=== PATIENT | female | born 1945 | race Caucasian/White ===

== ENCOUNTER 2019-04-15 13:51 | Inpatient (IN) ==
--- NOTE | 2019-04-15 14:01 | PROVIDER DOCUMENTATION ---
HPI-Abdominal Pain/GI Problem - General Chief Complaint: Abdominal Pain Stated Complaint: STOMACH PAIN Time Seen by Provider: 04/15/19 14:00 Allergies/Adverse Reactions: Patient Allergies Allergy/AdvReac Type Severity Reaction Status Date / Time prochlorperazine edisylate * Allergy Intermediate Unknown Verified 05/20/18 08:38 [From Compazine] prochlorperazine maleate * Allergy Intermediate Unknown Verified 05/20/18 08:38 [From Compazine] adhesive tape AdvReac Mild "irritates" Verified 05/20/18 08:38 skin Home Medications: Home Medication List Medication Instructions Recorded Confirmed Last Taken Type Acetaminophen/Diphenhydramine 1 each PO QHS 06/23/12 05/20/18 05/19/18 21:00 History [Tylenol Pm] Polyethylene Glycol 3350 [Miralax] 17 gm PO DAILY 06/23/12 05/20/18 05/19/18 10:00 History Amlodipine Besylate 5 mg PO DAILY 05/19/18 05/20/18 05/19/18 10:00 History Aspirin [Aspir-Low] 81 mg PO DAILY 05/19/18 05/19/18 05/08/18 History Biotin 1 dose PO DAILY 05/19/18 05/20/18 05/19/18 10:00 History Bisoprolol [Zebeta] 5 mg PO DAILY 05/19/18 05/20/18 05/19/18 10:00 History Cholecalciferol (Vitamin D3) 1 dose PO DAILY 05/19/18 05/20/18 05/19/18 10:00 History [Vitamin D3] Hydrochlorothiazide 12.5 mg PO DAILY 05/19/18 05/20/18 05/19/18 10:00 History Pantoprazole Sodium 40 mg PO DAILY 05/19/18 05/20/18 05/19/18 10:00 History Hydrochlorothiazide 25 mg PO DAILY #30 tablet 05/20/18 Unknown Rx Progress - PLAN OF CARE/RESULTS Progress/Plan/Lab Results: Vital Signs - 8 hr 04/15/19 13:53 Temperature 97.8 F Pulse Rate 62 Respiratory Rate 18 Blood Pressure 150/72 O2 Sat by Pulse Oximetry 99 Departure - Departure Referrals and Follow-Ups: Carlos Gongora MD [Primary Care Provider] -
[2019-04-15] MEDS ORDERED: NS 1,000 ML IV ONE (14:12)
[2019-04-15] MEDS ORDERED: ZOFRAN IV ONE (14:13)
[2019-04-15] MEDS ORDERED: MORPHINE IV ONE (14:13)
[2019-04-15 14:33] LABS: BASO# 0.03 X1000 (0.0-0.2); BASO% 0.2 % (0.0-0.8); EOS# 0.02 X1000 (0.0-0.7); EOS% 0.2 % (0.0-10.0); HEMOGLOBIN 14.4 g/dL (12.0-16.0); LYMPH# 0.64 X1000 (1.2-3.4); LYMPH% 4.9 % (20.5-51.1); MCH 30.5 PG (27-31); MCHC 33.5 g/dL (33-37); MCV 91.1 FL (81-99); MONO# 0.62 X1000 (0.11-0.59); MONO% 4.8 % (1.7-9.3); MPV 10.4 FL (7.4-10.4); NEUT# 11.66 X1000 (1.4-6.5); NEUT% 89.9 % (42.2-75.2); PLT 270 X1000 (130-400); RBC 4.72 XMIL (4.2-5.4); RDW 12.4 % (11.5-14.5); WBC 12.97 X1000 (4.8-10.8)
[2019-04-15 14:51] LABS: AGAP 16; ALB/GLOB RATIO 1.5; ALBUMIN 4.5 g/dL (3.5-5.0); ALKALINE PHOSPHATASE 196 U/L (32-104); BUN 19 mg/dL (8-22); CALCIUM 10.6 mg/dL (8.8-10.2); CHLORIDE 96 mmol/L (98-107); COSMO 280; CREATININE 0.9 mg/dL (0.5-0.9); ESTIMATED GFR > 60; GLUCOSE 136 mg/dL (70-104); GOT 299 U/L (10-30); GPT 360 U/L (10-36); POTASSIUM 4.2 mmol/L (3.5-5.1); SODIUM 138 mmol/L (136-145); TCO2 26 mmol/L (25-35); TOTAL BILIRUBIN 8.19 mg/dL (0.20-1.00); TOTAL PROTEIN 7.6 g/dL (6.3-8.3)
--- NOTE | 2019-04-15 15:00 | Diag Imaging Result Doc PS360 ---
EXAM: CT ABDOMEN/PELVIS W/O CONTRAST 04/15/2019 HISTORY: pyelonephritis, pancreatitis TECHNIQUE: This exam was performed using automated exposure control, adjustment of mA or kV according to patient size, and/or use of iterative reconstruction technique. COMMENT: The current study is compared with the previous examination of 11/26/2012. There are granulomatous calcifications in the right middle lobe. There is a large hiatal hernia. There are calcifications in the spleen. There is inflammatory change and stranding in the fat surrounding the pancreas which was not the case at the time the previous study. There has been cholecystectomy. The adrenal glands are not enlarged. There is no evidence of bowel obstruction. There is a mesh in the anterior abdominal and pelvic wall. There is diverticulosis in the sigmoid colon without evidence of diverticulitis. There is bilateral nephrolithiasis without evidence of hydronephrosis. There are stones measuring almost 6 mm in diameter in the lower pole of the right collecting system and there are at least three stones on the left the largest of which is in the mid collecting system measuring 5 mm in diameter. There are spondylotic changes in the lumbar spine with scoliosis and convexity to the left. IMPRESSION: Acute pancreatitis. There is no definite evidence of abscess. The possibility of necrosis cannot be evaluated without contrast. Bilateral nephrolithiasis. Electronically signed by Thierry Rosado 04/15/2019 2:58 PM
[2019-04-15 15:01] LABS: LIPASE 2477 U/L (13-60)
[2019-04-15] MEDS ORDERED: NEXIUM IV ONE (15:01)
[2019-04-15] MEDS ORDERED: SODIUM CHLORIDE 0.9% INJ ONE (15:01)
--- NOTE | 2019-04-15 15:05 | PROVIDER DOCUMENTATION ---
This chart was entered by Rhina Lugo Scribe, acting as scribe for Marlene Foote MD. HPI-Abdominal Pain/GI Problem - General Chief Complaint: Abdominal Pain Stated Complaint: STOMACH PAIN Time Seen by Provider: 04/15/19 14:00 Source: patient Allergies/Adverse Reactions: Patient Allergies Allergy/AdvReac Type Severity Reaction Status Date / Time prochlorperazine edisylate * Allergy Intermediate Unknown Verified 05/20/18 08:38 [From Compazine] prochlorperazine maleate * Allergy Intermediate Unknown Verified 05/20/18 08:38 [From Compazine] adhesive tape AdvReac Mild "irritates" Verified 05/20/18 08:38 skin Home Medications: Home Medication List Medication Instructions Recorded Confirmed Last Taken Type Acetaminophen/Diphenhydramine 1 each PO QHS 06/23/12 05/20/18 05/19/18 21:00 History [Tylenol Pm] Polyethylene Glycol 3350 [Miralax] 17 gm PO DAILY 06/23/12 05/20/18 05/19/18 10:00 History Amlodipine Besylate 5 mg PO DAILY 05/19/18 05/20/18 05/19/18 10:00 History Aspirin [Aspir-Low] 81 mg PO DAILY 05/19/18 05/19/18 05/08/18 History Biotin 1 dose PO DAILY 05/19/18 05/20/18 05/19/18 10:00 History Bisoprolol [Zebeta] 5 mg PO DAILY 05/19/18 05/20/18 05/19/18 10:00 History Cholecalciferol (Vitamin D3) 1 dose PO DAILY 05/19/18 05/20/18 05/19/18 10:00 History [Vitamin D3] Hydrochlorothiazide 12.5 mg PO DAILY 05/19/18 05/20/18 05/19/18 10:00 History Pantoprazole Sodium 40 mg PO DAILY 05/19/18 05/20/18 05/19/18 10:00 History Hydrochlorothiazide 25 mg PO DAILY #30 tablet 05/20/18 Unknown Rx - History of Present Illness-ABD Nature of Presenting Problems: 74 y/o female presents to ED with LUQ, nausea, and SOB onset yesterday. Pt reports she has had 1 episode of vomiting. Pt states her pain occasionally radiates to L flank and diffuse abdomen. Pt reports she had a liquid bowel movement this morning. Pt is alert and oriented. Abdominal Pain Onset Location: reports: LUQ Pain Radiation: reports: flank (L), other (diffuse abdomen) Quality of Pain: reports: sharp Severity in ED: reports: moderate Onset/Duration: reports: 24 hours ago Timing: reports: still present Activities at Onset: reports: none Exposure to sick contacts?: No Modifying Factors: worse with: palpation Associated Symptoms: reports: nausea, shortness of breath, vomiting Last BM: this morning Dark Stools Present?: reports: none noticed Rectal Bleeding: reports: none Rectal Pain: reports: none Similar Symptoms Previously?: No Recently seen or treated by another doctor?: No Review of Systems - Adult - REVIEW OF SYSTEMS - ADULT Constitutional: denies: chills, fever Eyes: reports: no symptoms reported Ears, Nose, Mouth & Throat: reports: no symptoms reported Cardiovascular: denies: chest pain, palpitations Respiratory: reports: shortness of breath. denies: cough Gastrointestinal: reports: abdominal pain, nausea, vomiting. denies: diarrhea Genitourinary: reports: no symptoms reported Musculoskeletal: denies: back pain, joint pain Integumentary: reports: no symptoms reported Neurological: denies: dizziness/vertigo, seizure Psychiatric: reports: no symptoms reported Endocrine: reports: no symptoms reported Hematologic/Lymphatic: reports: no symptoms reported Allergic/Immunologic: reports: no symptoms reported All Other Systems: Reviewed and Negative Past History - Adult - PAST MEDICAL HISTORY-ADULT Review of Records: reports: Old Records Reviewed, Nursing Assessment Review, Medications Reviewed Major Childhood Illnesses: reports: denies history Cardiovascular: reports: HTN Obstetrical/Gynecological: reports: other (R breast cancer) Genitourinary: reports: kidney stones - PRIOR SURGERIES/PROCEDURES Surgical/Procedure History: reports: cholecystectomy, hysterectomy, breast (biopsy), other (lithrotripsy) - IMMUNIZATION STATUS Childhood Immunizations: See Nurse Assessment Flu Vaccine: See Nurse Assessment - FAMILY HISTORY Family History: reviewed, not pertinent - SOCIAL HISTORY Smoking: non-smoker Substance Use: none/never Alcohol Use Frequency: never Living Situation: family Physical Exam-General - PHYSICAL EXAM-ADULT Initial Vital Signs Reviewed: Yes - CONSTITUTIONAL General Appearance: appears well, alert, moderate distress - EYES Eyes: PERRL/EOMI, pink conjunctivae - HEAD, EARS, NOSE, MOUTH & THROAT HENMT: normocephalic/atraumatic, moist mucous membranes, normal ENT inspection - NECK Neck: non-tender, full range of motion - RESPIRATORY Respiratory: chest non-tender, lungs clear, normal breath sounds - CARDIOVASCULAR Cardiovascular: normal peripheral pulses, regular rate, rhythm - GASTROINTESTINAL (ABDOMEN) Abdominal Exam: normal bowel sounds, soft, tenderness (mild LUQ) - MUSCULOSKELETAL Back Exam: normal inspection, no CVA tenderness, no vertebral tenderness, kyphosis Extremity: normal range of motion, non-tender, normal gait - SKIN Integumentary: normal color, warm/dry - NEUROLOGIC Neurologic: grossly normal - PSYCHIATRIC Psych/Mental Status: normal mood/affect, normal thought content, normal thought process, oriented x 3 Progress - PLAN OF CARE/RESULTS Progress/Plan/Lab Results: Vital Signs - 8 hr 04/15/19 13:53 Temperature 97.8 F Pulse Rate 62 Respiratory Rate 18 Blood Pressure 150/72 O2 Sat by Pulse Oximetry 99 Orders Category Date Time Status CT ABDOMEN/PELVIS W/O CONTRAST [CT] Stat Exams 04/15/19 14:12 Ordered CBC WITH ELECTRONIC DIFF [HEME] Stat Lab 04/15/19 14:12 Uncollected COMPREHENSIVE METABOLIC PANEL [CHEM] Stat Lab 04/15/19 14:12 Uncollected LIPASE [CHEM] Stat Lab 04/15/19 14:12 Uncollected 0.9% Sodium Chloride Inj [Ns] 1,000 ml Med 04/15/19 14:12 Active IV 999 mls/hr Morphine Med 04/15/19 14:13 Once 4 mg IV NOW ONE Ondansetron [Zofran] Med 04/15/19 14:13 Once 4 mg IV NOW ONE Laboratory Tests 04/15/19 04/15/19 14:14 14:14 WBC 12.97 H RBC 4.72 Hgb 14.4 Hct 43.0 MCV 91.1 MCH 30.5 MCHC 33.5 RDW Std Deviation 12.4 Plt Count 270 MPV 10.4 Immature Gran % (Auto) 0.0 Neut % (Auto) 89.9 H Lymph % (Auto) 4.9 L [place] % (Auto) 4.8 Eos % (Auto) 0.2 Baso % (Auto) 0.2 Immature Gran # (Auto) 0.00 Neut # (Auto) 11.66 H Lymph # (Auto) 0.64 L [place] # (Auto) 0.62 H Eos # (Auto) 0.02 Baso # (Auto) 0.03 Sodium 138 Potassium 4.2 Chloride 96 L Carbon Dioxide 26 Anion Gap 16 BUN 19 Creatinine 0.9 Estimated GFR/1.73 m2 > 60 BUN/Creatinine Ratio 21 Glucose 136 H Calculated Osmolality 280 Calcium 10.6 H Total Bilirubin 8.19 H AST 299 H ALT 360 H Alkaline Phosphatase 196 H Total Protein 7.6 Albumin 4.5 Globulin 3.1 Albumin/Globulin Ratio 1.5 Lipase 2477 H Result Diagrams: 04/15/19 14:14 04/15/19 14:14 - REASSESSMENT Reassessment #1 Time Reassessed: 14:59 (s/p fluid bolus, pain medicine. ) - CT/MRI 1 CT Study: Abdomen, Pelvis Impression: See EMR Report ([facility] - [address] , [address] [address] [facility] - [address] [place] [address] Department of Imaging Patient: CATY HUNTYCEADM Date: 04/15/19MR#: [id number] : 1945DM Status: REG ERAcct#: [id number] Age/Sex: 74/FRoom/Bed: Loc: ED Ordering Physician: Marlene Foote MD Family Physician: Carlos Gongora MD Reason for Procedure: pyelonephritis, pancreatitis Signed EXAM: CT ABDOMEN/PELVIS W/O CONTRAST 04/15/2019 HISTORY: pyelonephritis, pancreatitis TECHNIQUE: This exam was performed using automated exposure control, adjustment of mA or kV according to patient size, and/or use of iterative reconstruction technique. COMMENT: The current study is compared with the previous examination of 11/26/2012. There are granulomatous calcifications in the right middle lobe. There is a large hiatal hernia. There are calcifications in the spleen. There is inflammatory change and stranding in the fat surrounding the pancreas which was not the case at the time the previous study. There has been cholecystectomy. The adrenal glands are not enlarged. There is no evidence of bowel obstruction. There is a mesh in the anterior abdominal and pelvic wall. There is diverticulosis in the sigmoid colon without evidence of diverticulitis. There is bilateral nephrolithiasis without evidence of hydronephrosis. There are stones measuring almost 6 mm in diameter in the lower pole of the right collecting system and there are at least three stones on the left the largest of which is in the mid collecting system measuring 5 mm in diameter. There are spondylotic changes in the lumbar spine with scoliosis and convexity to the left. IMPRESSION: Acute pancreatitis. There is no definite evidence of abscess. The possibility of necrosis cannot be evaluated without contrast. Bilateral nephrolithiasis. Electronically signed by Thierry Rosado 04/15/2019 2:58 PM 04/15/19 1458 Interpreting Physician: Thierry Rosado MD Dictated Date/Time: 04/15/19 1454 cc: Marlene Foote MD; Carlos Gongora MD) - CONSULTS/PCP/HOSPITALIST Notification #1 *Consult/PCP/Hospitalist*: Dr. Gongora Time Discussed: 15:03 Reason/Comments: Acute pancreatitis Consult Disposition: Admit Departure - Departure Date of Disposition Decision: 04/15/19 Time of Disposition Decision: 14:58 DIAGNOSIS: Acute pancreatitis, Liver function abnormality Disposition: ADMITTED INPATIENT 09 Certified Medical Emergency: Emergent Condition: Stable Referrals and Follow-Ups: Carlos Gongora MD [Primary Care Provider] - - Critical Care Note This patient required my direct & personal management of CC.: No Attestation - Physician/ NANDINI Attestation Patient care was provided by Advanced Practice Provider:: No The physician spent face to face time with patient:: Yes Advanced Practice Provider documentation review:: Supervising physician onsite and consulted in the evaluation and care of this patient. The physician did have a face to face encounter with the patient. This chart was documented by the indicated scribe, (Rhina Lugo Scribe) and accurately reflects the services I performed and decisions made by me, Marlene Foote MD, as attested by the provider's signature.
[2019-04-15] MEDS ORDERED: DILAUDID IV ONE (15:13)
[2019-04-15 15:39] LABS: URINE SOURCE CLEAN CATCH
[2019-04-15 15:45] LABS: UR EPITHELIAL CELLS <10 /HPF (<10); URINE BACTERIA NEGATIVE /HPF; URINE RBC <10 /HPF (<10); URINE WBC <10 /HPF (<10)
[2019-04-15 15:46] LABS: BILIRUBIN URINE SMALL (NEGATIVE); BLOOD URINE NEGATIVE (NEGATIVE); COLOR YELLOW; GLUCOSE URINE NEGATIVE (NEGATIVE); KETONE URINE TRACE mg/dL (NEGATIVE); LEUKOCYTES URINE NEGATIVE (NEGATIVE); NITRITE URINE NEGATIVE (NEGATIVE); PROTEIN URINE NEGATIVE (NEGATIVE); SP GRAVITY URINE 1.012; TURBIDITY URINE CLEAR (CLEAR); UROBILINOGEN URINE NORMAL (NORMAL)
[2019-04-15] MEDS ORDERED: DILAUDID IM PRN (16:03)
[2019-04-15] MEDS: ZOFRAN IV PRN ×2 (19:46→23:50)
[2019-04-15] MEDS: LOVENOX SUBQ SCH ×2 (19:46→21:05)
[2019-04-15] MEDS: DILAUDID IV PRN ×2 (19:46→23:50)
[2019-04-15] MEDS: ZOSYN 3.375 GM in NS 50 ML IV SCH ×2 (19:47→23:50)
[2019-04-15] MEDS: NS 1,000 ML IV SCH (19:47)
[2019-04-15] MEDS: HUMULIN R SUBQ SCH (21:05)
--- NOTE | 2019-04-15 21:09 | HISTORY AND PHYSICAL ---
CHIEF COMPLAINT: Upper abdominal pain for the last 3 days, with radiation to the back. HISTORY OF PRESENT ILLNESS: She is a 74-year-old, white female, who came to the ER with worsening of upper abdominal pain radiating to the back. The patient was found to have pancreatitis with obstructive jaundice. The patient had a prior cholecystectomy in 2012. Admitted to the hospital with pancreatitis due to obstructive jaundice, rule out tumor, rule out gallstones. The patient has a lot of pain with nausea. Family was at bedside. As a result, a hospital admission was warranted. PAST MEDICAL HISTORY: Left bundle-branch block, left heart catheterization was negative by Dr. Cardenas, with atypical chest pain; right-sided breast cancer in 1989, in remission; diverticulosis, hiatal hernia, metabolic syndrome, hypertension, kidney stones. PAST SURGICAL HISTORY: Right radical mastectomy followed by chemotherapy and reconstructive surgery, history of lithotripsy, under the care of Dr. Bey; status post cholecystectomy in November 2012. MEDICATIONS: Bisoprolol, hydrochlorothiazide, Protonix. ALLERGIES: Compazine. SOCIAL HISTORY: with 1 daughter. Retired from work. No smoking. No alcohol. Living in [place]. Father at 73 from kidney cancer and heart attack. Mom of lymphoma at 69. Sister had colon cancer. Brother had mesothelioma. HEALTH MAINTENANCE: Flu vaccine 2015, pneumococcal 2011, last mammography June 2018, by Dr. Krishnamurthy. Colonoscopy and EGD in November 2017, by Dr. Reyes, and hiatal hernia with vascular polyp noted. REVIEW OF SYSTEMS: HEENT: No headache. No vision problem. No earache. No sore throat. Neck: No goiter. No lymphadenopathy. No bruit. Cardiopulmonary: No chest pain, shortness of breath, PND, orthopnea. Upper abdominal pain going to the back. Nausea. No altered bowel habits. No bleeding per rectum. Genitourinary: No history of hesitancy, frequency, dysuria. No swelling of legs. No joint pain. Neurologic: No focal symptoms or weakness. PHYSICAL EXAMINATION: VITAL SIGNS: Temperature is 98.2 degrees, pulse is 54, blood pressure is 143/66. Five feet 5 inches, 219 pounds. HEENT: Atraumatic, normocephalic. Pupils equally react to light. Mild jaundice. TMs are normal. Nose and throat within normal limits. NECK: Supple. No lymphadenopathy. CHEST: Bilateral air entry. CARDIOVASCULAR: Heart sounds are regular. No murmur. GASTROINTESTINAL: Belly is soft. Tender in the epigastric area. No signs of peritonitis. EXTREMITIES: No peripheral edema or cyanosis. NEUROLOGIC: No obvious neurological deficits. INVESTIGATIONS: CBC: White cell count 12.9, hematocrit 43, platelet 270,000. Sodium 138, potassium 4.2, chloride 96, BUN 19, creatinine 0.9, glucose 136, calcium 10.6. Bilirubin 8.9. Elevated LFTs. Lipase is 2400. Urine is negative. CT scan of the abdomen and pelvis: Status post cholecystectomy. Right middle lobe granulomatosis calcification. Large hiatal hernia. Acute pancreatitis. Bilateral kidney stones. No hydronephrosis. Three stones on the left side, 5 mm. Spondylosis changes in the lumbar spine. There is a mesh in the anterior abdominal wall. ASSESSMENT: A 74-year-old, white female, admitted to the hospital with acute pancreatitis with obstructive jaundice, status post cholecystectomy. PLAN: 1. Rule out gallstones with ultrasound of the abdomen, and check the CA-19-9, IgG 4 levels. Plan of care is NPO after midnight, and IV fluids, IV Dilaudid, Zofran for nausea. Deep vein thrombosis and gastrointestinal prophylaxis with Lovenox and Pepcid. 2. Follow up on [place]'s criteria and obstructive jaundice. We will also give IV Zosyn. Consult with Dr. Moscoso's group for evaluation of ERCP. Discussed the plan of care with family at bedside, will hold the home medications, and insulin for sliding scale with insulin protocol. cc: Davide Gongora MD
[2019-04-16] MEDS: ZOSYN 3.375 GM in NS 50 ML IV SCH ×4 (01:44→20:32)
[2019-04-16] MEDS: DILAUDID IV PRN ×6 (04:38→23:51)
[2019-04-16] MEDS: ZOFRAN IV PRN ×3 (04:39→23:51)
[2019-04-16 07:12] LABS: BASO# 0.01 X1000 (0.0-0.2); HEMATOCRIT 39.1 % (37.0-47.0); HEMOGLOBIN 13.4 g/dL (12.0-16.0); IMM GRAN# 0.09 X1000 (0.0-0.04); IMM GRAN% 0.4 % (0.0-0.5); LYMPH# 0.29 X1000 (1.2-3.4); LYMPH% 1.3 % (20.5-51.1); MCHC 34.3 g/dL (33-37); MCV 90.5 FL (81-99); MONO# 1.67 X1000 (0.11-0.59); MONO% 7.4 % (1.7-9.3); MPV 10.5 FL (7.4-10.4); NEUT# 20.36 X1000 (1.4-6.5); NEUT% 90.9 % (42.2-75.2); PLT 241 X1000 (130-400); RBC 4.32 XMIL (4.2-5.4); RDW 12.2 % (11.5-14.5); WBC 22.42 X1000 (4.8-10.8)
[2019-04-16 07:30] LABS: LYMPHS 3 % (21-51); MONO 4 % (1-9); SEGS 92 % (42-75)
[2019-04-16] MEDS: HUMULIN R SUBQ SCH ×4 (07:45→22:23)
[2019-04-16 07:47] LABS: AGAP 15; ALB/GLOB RATIO 1.4; ALBUMIN 3.8 g/dL (3.5-5.0); ALKALINE PHOSPHATASE 171 U/L (32-104); AMYLASE 1129 U/L (20-200); BUN 14 mg/dL (8-22); CALCIUM 9.6 mg/dL (8.8-10.2); CHLORIDE 96 mmol/L (98-107); CHOLESTEROL 161 mg/dL (0-200); COSMO 275; CREATININE 0.8 mg/dL (0.5-0.9); ESTIMATED GFR > 60; GLUCOSE 113 mg/dL (70-104); GOT 224 U/L (10-30); GPT 308 U/L (10-36); HDL 84 mg/dL (45-65); LDL 64 mg/dL; POTASSIUM 2.7 mmol/L (3.5-5.1); SODIUM 137 mmol/L (136-145); TCO2 26 mmol/L (25-35); TOTAL BILIRUBIN 7.91 mg/dL (0.20-1.00); TOTAL PROTEIN 6.5 g/dL (6.3-8.3); TRIGLYCERIDES 64 mg/dL (35-135); VLDL 13 mg/dL
[2019-04-16] MEDS ORDERED: MAGNESIUM SULFATE 2 GM/S.W.I. 2 GM/50 ML IVPB IV ONE (07:49)
[2019-04-16] MEDS: NS 1,000 ML IV SCH ×4 (09:30→22:23)
[2019-04-16] MEDS: POTASSIUM CHLORIDE 60 MEQ in NS 500 ML IV SCH ×2 (09:41→17:25)
--- NOTE | 2019-04-16 10:21 | Diag Imaging Result Doc PS360 ---
EXAM: US ABDOMEN-COMPLETE INDICATION: elevated LFT COMPARISON: 11/26/2012 FINDINGS: There has been a prior cholecystectomy. The common bile duct is normal in diameter. The liver is grossly unremarkable. Portal venous flow is hepatopetal. The pancreas is largely obscured by bowel gas. The aorta and IVC are grossly unremarkable. The spleen is unremarkable. The kidneys are grossly unremarkable. IMPRESSION: Essentially unremarkable abdominal ultrasound. Electronically signed by Saturnino Trejo 04/16/2019 10:18 AM
[2019-04-16] MEDS ORDERED: NS 250 ML ONE (13:46)
[2019-04-16 14:01] LABS: INR 1.09
--- NOTE | 2019-04-16 14:14 | Diag Imaging Result Doc PS360 ---
MRI MRCP (ABD W/O CONTRAST) - 04/16/2019 INDICATION: r/o choledocholithiasis TECHNIQUE: COMPARISON: CT and ultrasound from earlier today FINDINGS: The MRCP is normal. Common bile duct measures 4.6 mm in caliber. The main pancreatic duct is completely normal and measures 1 mm. No stones or filling defect. There is significant diffuse peripancreatic edema compatible with pancreatitis. No drainable fluid collections. Normal spleen size. There is a hiatal hernia. IMPRESSION: 1. Acute pancreatitis. 2. Normal MRCP. Electronically signed by Jhonny Faye 04/16/2019 2:12 PM
[2019-04-16 15:55] LABS: URINE SOURCE CATH
[2019-04-16] MEDS: SODIUM CHLORIDE 0.9% INJ SCH (15:59)
[2019-04-16] MEDS: NEXIUM IV SCH (15:59)
[2019-04-16 16:10] LABS: BILIRUBIN URINE SMALL (NEGATIVE); BLOOD URINE NEGATIVE (NEGATIVE); COLOR YELLOW; GLUCOSE URINE NEGATIVE (NEGATIVE); KETONE URINE 10 mg/dL (NEGATIVE); LEUKOCYTES URINE NEGATIVE (NEGATIVE); NITRITE URINE NEGATIVE (NEGATIVE); PH URINE 5.5; PROTEIN URINE TRACE mg/dL (NEGATIVE); SP GRAVITY URINE 1.018; TURBIDITY URINE CLEAR (CLEAR); UROBILINOGEN URINE NORMAL (NORMAL)
[2019-04-16 16:12] LABS: UR EPITHELIAL CELLS <10 /HPF (<10); URINE BACTERIA NEGATIVE /HPF; URINE RBC <10 /HPF (<10); URINE WBC <10 /HPF (<10)
--- NOTE | 2019-04-16 20:25 | PROGRESS NOTE ---
DATE: 04/16/2019 SUBJECTIVE: The patient is not better. She is in a lot of pain, nauseated. She had a rough night last night. OBJECTIVE: On exam, temperature is 97 degrees, pulse 58, blood pressure is stable. The patient has jaundice noted. Neck is supple. Chest is clear. Heart sounds are regular. Belly is soft. Tender in the epigastric area. No obvious neurological deficits. LABORATORY DATA: CBC: White cell count 22, hematocrit 39, platelets 241,000. PT/INR is normal. Potassium 2.7. Amylase 1100. Triglycerides 64. Increased LFTs. ASSESSMENT AND PLAN: 1. Acute pancreatitis, etiology to be determined. Ultrasound is negative for gallstones, status post cholecystectomy. Normal triglycerides. Follow up on CA19-9. Appreciated Dr. Garcia consult. Magnetic resonance cholangiopancreatography is negative. 2. Deep venous thrombosis prophylaxis with Lovenox . 3. Gastrointestinal prophylaxis with intravenous Nexium. 4. Increasing the pain medicine, 2 mg of hydromorphone. 5. Replace the potassium. 6. Increasing intravenous fluids. 7. Continue on intravenous Zosyn. 8. Follow up on the pending labs. Level of documentation is 25 minutes. Discussed the plan of care with the family. cc: Davide Gongora MD
[2019-04-16] MEDS: LOVENOX SUBQ SCH (20:32)
--- NOTE | 2019-04-16 20:47 | GASTROENTEROLOGY CONSULTATION ---
DATE: 04/16/2019 REASON FOR CONSULTATION: Acute pancreatitis with jaundice. HISTORY OF PRESENT ILLNESS: Ms. Leonela Joe is a 74-year-old woman, with past medical history of hypertension, obesity, remote history of breast cancer, status post acute mastectomy and chemotherapy, GERD, colonic polyps, diverticulosis, kidney stones, prior cholecystectomy, left bundle branch block, metabolic syndrome, who presents with 2 weeks of progressive intermittent epigastric pain. The patient reports having a dull aching pain that developed about 2 weeks ago, that was an intermittent, not related to eating, and located in the epigastric left upper quadrant. She says that the pain became acutely worse Friday night and then again , which prompted her presentation to the ED. She also reports some associated nonbloody, nonbilious emesis that started this past Friday, as well as some sweats. No fevers, chills, hematemesis, rectal bleeding. She has noted that her stools have become light colored, tammy-colored, and loose, as well as having dark rust-colored urine. Yesterday, she was noted in the ED to have jaundice. She denies any prior history of pancreatitis. She does not drink any alcohol. Her symptoms are similar to when she had her gallbladder removed in 2012. No weight loss. No family history of pancreatitis or pancreatic cancer. No known history of liver disease. REVIEW OF SYSTEMS: As per HPI, otherwise 12 point review of systems is negative. PAST MEDICAL HISTORY: 1. Left bundle branch block. 2. Left heart catheterization was negative in the past. She has atypical chest pain. 3. History of right breast cancer in 1989, in remission. 4. Diverticulosis. 5. Colonic polyps. 6. Hiatal hernia. 7. Metabolic syndrome. 8. Hypertension. 9. Kidney stones. 10. GERD. 11. Obesity. PAST SURGICAL HISTORY: 1. Right radical mastectomy, followed by chemotherapy and reconstructive surgery. 2. History of lithotripsy for kidney stones. 3. Status post cholecystectomy. HOME MEDICATIONS: Include: 1. Bisoprolol. 2. Hydrochlorothiazide. 3. Protonix. 4. Aspirin. 5. Vitamin D. 6. Lasix 20 mg daily. 7. Vitamin E. ALLERGIES: Compazine. SOCIAL HISTORY: No smoking, alcohol, or drug use. FAMILY HISTORY: Sister with colon cancer. No family history of pancreatitis or liver disease. No family history of pancreatic cancer. PHYSICAL EXAMINATION: Vital Signs: Temperature is 97.5 degrees, heart rate is 58, respiratory rate 18, blood pressure 141/52, O2 saturation 98% on room air. General: Patient is awake, alert, in mild distress from pain. HEENT: She does have some grimacing. Some mild scleral icterus. Dry mucous membranes. Extraocular motor is intact. Neck: Supple. No JVD or lymphadenopathy. Cardiac: Regular rate and rhythm. No murmurs. Lungs: Clear to auscultation bilaterally. No wheezing. Abdomen: Obese. Bowel sounds are hypoactive. Nondistended. Tenderness to palpation throughout, particularly in the upper abdomen. No rebound or guarding. Extremities: No clubbing, cyanosis, or edema. Neurologic: Nonfocal. Skin: Warm and well perfused. LABS: White count of 22.4 from 12.97 yesterday, hemoglobin is 13.4, platelets 241,000. Sodium 137, potassium is 2.7, chloride 96, bicarb 26, BUN of 14, creatinine 0.8, glucose of 113. LFTs: Total bilirubin is 7.9 from 8.1, AST is 224 from 299, ALT is 308 from 360, alkaline phosphatase 171 from 196, total protein is 6.5, albumin 3.8, lipase of 2477. UA shows trace ketones and bilirubin. No blood cultures. IMAGING: CT of the abdomen and pelvis without contrast shows acute pancreatitis. There is no definite evidence of abscess. The possibility of necrosis cannot be evaluated without contrast. Bilateral nephrolithiasis. Followup abdominal ultrasound shows essentially normal ultrasound without any evidence of intrahepatic or extrahepatic biliary dilation. ASSESSMENT: Ms. Leonela Joe is a 74-year-old woman with obesity, prior history of cholecystectomy, who presents with acute pancreatitis as well as mixed hepatocellular and cholestatic liver injury. CT and ultrasound are negative for biliary obstruction. Her triglycerides are within normal limits at 64. IgG4 and CA19-9 are pending. Her pain is persistent. Currently, she is on normal saline at 80 mL/hour. The differential of her acute pancreatitis includes choledocholithiasis, microlithiasis, pancreatic or biliary malignancy, stricture. She has no history of alcoholism or alcohol use. She is a nonsmoker. No prior history of pancreatitis in the past to suggest hereditary etiology. PLAN: 1. Will plan to increase her intravenous fluids to 200 mL/hour of normal saline. 2. Serial abdominal exams. 3. Trend her chemistries and CBC. 4. Replete electrolytes as needed. 5. She is on empiric antibiotics with Zosyn for now given her leukocytosis; however, this could be an acute phase reactant. 6. Will order cultures, including urine and blood. 7. She has no history of cardiac disease. 8. Other findings on her labs include hypokalemia. Recommend repleting as needed. 9. She is currently n.p.o. and on Dilaudid for pain control. 10. She may need ultimately need endoscopic retrograde cholangiopancreatography; however, given her persistent pain currently and concern for possible absence of stones, I would not want to put her through an invasive procedure that could potentially worsen her pancreatitis at this time. We will confirm signs of any biliary obstruction or evidence of possible malignancy, which may alter our management. Findings and plans were discussed with primary team as well as family at bedside. Thank you for this consult. Will follow with you. Please call with any questions or concerns. cc: Davide Gongora MD
[2019-04-17] MEDS: ZOSYN 3.375 GM in NS 50 ML IV SCH ×4 (01:32→19:02)
[2019-04-17] MEDS: NS 1,000 ML IV SCH ×4 (01:32→14:58)
[2019-04-17] MEDS: DILAUDID IV PRN ×6 (03:30→22:23)
[2019-04-17] MEDS: HUMULIN R SUBQ SCH ×4 (06:17→22:25)
[2019-04-17] MEDS: ZOFRAN IV PRN ×2 (07:32→22:37)
[2019-04-17 08:24] LABS: BASO# 0.01 X1000 (0.0-0.2); HEMOGLOBIN 11.7 g/dL (12.0-16.0); IMM GRAN# 0.17 X1000 (0.0-0.04); IMM GRAN% 0.6 % (0.0-0.5); LYMPH# 0.48 X1000 (1.2-3.4); LYMPH% 1.6 % (20.5-51.1); MCH 30.7 PG (27-31); MCHC 32.5 g/dL (33-37); MCV 94.5 FL (81-99); MONO# 2.26 X1000 (0.11-0.59); MONO% 7.5 % (1.7-9.3); MPV 10.7 FL (7.4-10.4); NEUT# 27.03 X1000 (1.4-6.5); NEUT% 90.3 % (42.2-75.2); PLT 211 X1000 (130-400); RBC 3.81 XMIL (4.2-5.4); RDW 13.2 % (11.5-14.5); WBC 29.95 X1000 (4.8-10.8)
[2019-04-17 08:35] LABS: INR 1.31; PROTIME 17.3 Seconds (11.0-16.0)
[2019-04-17 08:41] LABS: AGAP 11; BUN 18 mg/dL (8-22); CALCIUM 9.2 mg/dL (8.8-10.2); CHLORIDE 110 mmol/L (98-107); COSMO 286; CREATININE 0.7 mg/dL (0.5-0.9); ESTIMATED GFR > 60; GLUCOSE 89 mg/dL (70-104); POTASSIUM 3.7 mmol/L (3.5-5.1); SODIUM 143 mmol/L (136-145); TCO2 22 mmol/L (25-35)
[2019-04-17 08:58] LABS: BANDS 2 % (0-1); LYMPHS 2 % (21-51); MONO 2 % (1-9); SEGS 92 % (42-75)
[2019-04-17] MEDS ORDERED: NS 1,000 ML IV SCH (11:30)
[2019-04-17] MEDS: SODIUM CHLORIDE 0.9% INJ SCH (15:09)
[2019-04-17] MEDS: NEXIUM IV SCH (15:09)
--- NOTE | 2019-04-17 21:20 | PROGRESS NOTE ---
DATE: 04/17/2019 SUBJECTIVE: I am seeing Ms. Joe in Dr. Gongora's absence today and tomorrow. The patient is still having pain in the upper abdomen. On questioning, she has no history of having very high triglycerides that she is aware of, and she is followed by Dr. 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 Note made, triglycerides done yesterday were 64, LDL also 64. OBJECTIVE: Afebrile. Pulse 93, respirations 20, blood pressure 146/80s. CV: RRR. Lungs CTA. Moderate obesity. Abdomen with tenderness in the upper abdomen. Extremities: No calf tenderness, cords or edema.Neurologic: Cranial nerves are intact. No focal deficits. LABORATORY DATA: Today sodium 143, potassium 3.7, chloride 110, CO2 is 22, BUN 18, creatinine 0.7, glucose 89, calcium 9.2. Amylase 338, lipase 219; these are both down quite significantly. White count has escalated to 29,000, hemoglobin 11.7, platelets 211,000. CA19-9 is pending. DIAGNOSTIC DATA: MRCP negative. Abdominal ultrasound negative. CT abdomen and pelvis revealing acute pancreatitis, no obvious source. ASSESSMENT: 1. Acute pancreatitis, remote history of cholecystectomy in 2012. 2. History of breast cancer on the right. 3. History of kidney stones. 4. Chronic left bundle branch block. 5. History of negative left heart catheterization per Dr. Cardenas in the recent past. 6. Diverticulosis. 7. Hiatal hernia. 8. Hypertension. 9. Metabolic syndrome. PLAN: The patient remains on IV fluids and Dr. Victor is cutting those back, and he is placing her on a clear liquid diet. He is customer operations associate for Dr. Garcia. The patient is receiving Dilaudid for pain control, Nexium IV. Prophylaxis of DVT with Lovenox. She is on Zosyn, and IV fluids are being cut back from 200 mL/h to 100 mL/h. We will continue to follow and repeat labs in the morning to include CMP, CBC, amylase and lipase levels. cc: MD Davide Cali MD
[2019-04-17] MEDS: LOVENOX SUBQ SCH (22:23)
[2019-04-18] MEDS: NS 1,000 ML IV SCH ×6 (00:37→20:42)
[2019-04-18] MEDS: ZOSYN 3.375 GM in NS 50 ML IV SCH ×4 (00:39→18:33)
[2019-04-18] MEDS: DILAUDID IV PRN ×5 (02:35→23:19)
--- NOTE | 2019-04-18 05:59 | GASTROENTEROLOGY PROGRESS NOTE ---
DATE: 04/17/2019 SUBJECTIVE: Resting in bed. She complains of abdominal pain, it is 8/10. Her lipase is trending down. Her white count is trending up. She denies any fevers, rigors, chills. She does have nausea. She has not moved her bowels. She has history of chronic constipation, take MiraLAX at home. OBJECTIVE: Vital signs: Temperature 98.1 degrees, pulse of 72, respiratory rate 17, blood pressure 130/68, saturating 94% on nasal cannula. Body weight 219 pounds. BMI of 36.4 kg/m2. General: Obese, lying in bed, in mild distress with abdominal pain. HEENT: Positive pallor. Positive icterus. Nasal cannula in place. Neck: Supple. Abdomen: Discomfort and tenderness in the epigastric region. No hepatomegaly. No rebound. Bowel sounds are hypoactive. Extremities: No cyanosis, clubbing, edema. Neuro: Alert, awake, oriented. LABS: Hemoglobin and hematocrit 11.7 and 36, white count of 29.95, platelet count of 211,000. Sodium 143, potassium 3.7, chloride 100, bicarb 22, anion gap 11, BUN of 18, creatinine 0.7. Glucose of 89, calcium 7.2. Liver enzymes were tested yesterday, bilirubin yesterday was 7.91, AST 224, ALT 308, alkaline phosphatase 131, total protein is 6.2, albumin 3.8. Today, her amylase is 338 and lipase is 219. Urinalysis showed trace protein, some ketones, and some bilirubin. IgG level of 906. Blood culture x2 have been drawn yesterday, they are currently pending. MRCP done, showed acute pancreatitis, otherwise normal MRCP. CT scan of the abdomen and pelvis done yesterday, showed acute pancreatitis. No definite evidence of abscess. The possible necrosis cannot be evaluated without contrast. Bilateral nephrolithiasis. IMPRESSION AND PLAN: 1. Severe acute pancreatitis of unclear etiology. We will follow up on IgG 4 level, CA 19-9 levels. Her MRCP is negative. Ultrasound is negative for gallstones, she is status post cholecystectomy in 2012. She does not drink alcohol. She has normal triglycerides. It could still be biliary sludge disease. At this moment, we will continue aggressive hydration with 200 mL/h. We will continue the pain control. She will continue on IV pain control, IV antiemetics. 2. Deep venous thrombosis prophylaxis with Lovenox. 3. Gastrointestinal prophylaxis. Nexium. 4. History of constipation. We will start on MiraLAX when she is able to start orally. 5. Leukocytosis, likely it is reactive. She will continue on Zosyn. If her leukocytosis worsens, she may have to have a repeat CT scan with intravenous contrast to evaluate for pancreatic necrosis. She will continue to be NPO except ice chips for today and, hopefully, we can start her on clear liquids tomorrow. 6. Obesity. Aware. 7. History of colon polyps. Severe. 8. Diverticulosis. 9. History of metabolic syndrome. Aware. 10. History of breast cancer in 1989, in remission. Aware. 11. History of left bundle branch block. Aware. Above plans discussed with the patient and family at bedside. All questions answered. Please call us with any further questions. Thank you for allowing us to participate in the care of your patient. cc: MD Davide Pritchett MD
[2019-04-18] MEDS: ZOFRAN IV PRN (06:35)
[2019-04-18] MEDS: HUMULIN R SUBQ SCH ×4 (06:55→20:46)
[2019-04-18 08:14] LABS: BASO# 0.02 X1000 (0.0-0.2); BASO% 0.1 % (0.0-0.8); HEMATOCRIT 34.4 % (37.0-47.0); HEMOGLOBIN 11.2 g/dL (12.0-16.0); IMM GRAN# 0.18 X1000 (0.0-0.04); IMM GRAN% 0.8 % (0.0-0.5); LYMPH# 0.41 X1000 (1.2-3.4); LYMPH% 1.7 % (20.5-51.1); MCH 31.2 PG (27-31); MCHC 32.6 g/dL (33-37); MCV 95.8 FL (81-99); MONO# 1.88 X1000 (0.11-0.59); MONO% 7.9 % (1.7-9.3); MPV 10.6 FL (7.4-10.4); NEUT# 21.41 X1000 (1.4-6.5); NEUT% 89.5 % (42.2-75.2); PLT 203 X1000 (130-400); RBC 3.59 XMIL (4.2-5.4); RDW 13.3 % (11.5-14.5)
[2019-04-18 08:18] LABS: AGAP 15; ALB/GLOB RATIO 1.1; ALBUMIN 3.2 g/dL (3.5-5.0); ALKALINE PHOSPHATASE 117 U/L (32-104); AMYLASE 59 U/L (20-200); BUN 17 mg/dL (8-22); CALCIUM 8.9 mg/dL (8.8-10.2); CHLORIDE 111 mmol/L (98-107); COSMO 291; CREATININE 0.6 mg/dL (0.5-0.9); ESTIMATED GFR > 60; GLUCOSE 83 mg/dL (70-104); GOT 33 U/L (10-30); GPT 129 U/L (10-36); LIPASE 28 U/L (13-60); POTASSIUM 3.7 mmol/L (3.5-5.1); SODIUM 146 mmol/L (136-145); TCO2 20 mmol/L (25-35); TOTAL BILIRUBIN 1.65 mg/dL (0.20-1.00); TOTAL PROTEIN 6.1 g/dL (6.3-8.3)
[2019-04-18 09:42] LABS: BANDS 6 % (0-1); MONO 8 % (1-9)
[2019-04-18 09:43] LABS: LYMPHS 2 % (21-51); SEGS 84 % (42-75)
--- NOTE | 2019-04-18 12:40 | PROGRESS NOTE ---
DATE: 04/18/2019 SUBJECTIVE: The patient had a little shortness of breath this morning, but has been a little more mobile and she seems to think her pain in her left upper quadrant and left epigastrium has improved slightly. We note her O2 saturations have done well at 100% on 2 L. OBJECTIVE: Morbidly obese.CV: RRR. Lungs: Clear. Abdomen: Tender left epigastrium, left upper quadrant, moderate. Extremities: No calf tenderness, cords or edema. Neurologic: Cranial nerves 2-12 are intact. She is mildly agitated currently. Afebrile. Blood pressure 143/90, pulse respirations 18. Earlier this morning. LABORATORY DATA: Shows improvement in LFTs with AST 33, ALT, ALT 129, alkaline phosphatase 117. Sodium 146, potassium 3.7, CO2 20, BUN 17, creatinine 0.6. White count down from 29 yesterday to 23.9, hemoglobin 11.2, platelets 203,000. ASSESSMENT: 1. Acute pancreatitis with prior cholecystectomy 2012 with no definite etiology found thus far. 2. History of breast cancer on the right, remote. 3. History of kidney stones. 4. Chronic left bundle-branch block. 5. History of negative left heart catheterization per Dr. Cardenas in the recent past. 6. Diverticulosis. 7. Hiatal hernia. 8. Hypertension. 9. Metabolic syndrome. PLAN: IV fluids are being managed by Dr. Victor of gastroenterology. She is NPO except for ice chips and medications currently. She is on Zosyn and Dilaudid. The IV fluids were not cut back from 200 mL an hour 100 yesterday after re-evaluation by Dr. Victor. He decided to leave him at 200 mL an hour. We will continue to monitor fluid status. Her urine is dark and we note I Os are 1540 in yesterday with 1125 out. Continue supportive measures. cc: MD Davide Cali MD
[2019-04-18] MEDS: SODIUM CHLORIDE 0.9% INJ SCH (15:57)
[2019-04-18] MEDS: NEXIUM IV SCH (15:57)
[2019-04-18] MEDS ORDERED: SODIUM CHLORIDE 0.9% 10 ML ONE (16:00)
--- NOTE | 2019-04-18 18:42 | GASTROENTEROLOGY PROGRESS NOTE ---
DATE: 04/18/2019 SUBJECTIVE: Resting in bed. She has complained abdominal pain in the epigastric region in the left upper quadrant. It ranges was 6 to 7/10. White count is trending down 23.9. Her urine output has improved. Her liver enzymes come down. Her amylase and lipase have also come down. Her CA-19-9 was high at 1935. The patient does complain some dry heaving. She denies any vomiting blood. She has not had a bowel movement. She denies any fevers, rigors, or chills. PHYSICAL EXAMINATION: Vitals: Temperature of 98.9 degrees, pulse of 89, respiratory rate 18, blood pressure 129/55 saturating 92% on room air. Body weight of 219 pounds. BMI of 36.4 kg. General: The patient is obese, lying in bed in mild distress. She has abdominal discomfort. HEENT: Positive pallor. No icterus. Nasal cannula in place. Neck: Supple. Abdomen: There is discomfort apparent. No rebound. No guarding. Extremities: No cyanosis or clubbing. Neurologic: Alert, awake, oriented x3. LABS: Hemoglobin and hematocrit 11.2 and 34.4, white count of 23.9, platelet count of 203,000. Sodium 140, potassium 3.7, chloride 111, bicarb 20, anion gap 15, BUN of 17, creatinine 0.6, glucose of 83, calcium 8.9, total bilirubin is 1.65. AST 33, ALT 149. Alkaline phosphatase 117, total protein 6.2, albumin 3.2. Amylase of 59, lipase of 28 and CA-19-9 is 1935. Urinalysis showing trace protein, some ketones and small bilirubin. Next blood cultures are negative at 48 hours. IMPRESSION AND PLAN: 1. Severe acute pancreatitis of unclear etiology. We will follow up on the IgG 4 level. Her CA- 19-9 level is high and 1935. This could be reactive to pancreatitis. She will need a repeat imaging in 3 days with IV contrast to evaluate for any kind of pancreatic malignancy or liver enzymes and amylase lipase are trending down. We will continue with IV fluids. We will that cut down to 150 mL/hour. She will continue on pain control. We will reduce the dose of Dilaudid to 1 to 2 mg every 3 hours as needed and hold for sedation and respiratory rate less than 12 per minute. She will continue on IV antiemetics. 2. Deep vein thrombosis with Lovenox. 3. Gastrointestinal prophylaxis with Nexium. 4. Constipation. We will start MiraLAX once daily. 5. Leukocytosis likely reactive. This is coming down. We will follow blood cultures. Negative. She is on empiric Zosyn and she will need a CT scan in 72 hours to evaluate for any kind of pancreatic necrosis. 6. Obesity. The patient was counseled to lose weight. 7. History of colon polyps. Aware. 8. Diverticulosis. Aware. 9. Metabolic syndrome. Aware. 10. History of breast cancer in 1989 in remission. Aware. 11. History of left bundle branch block. Aware. The above plans were discussed with the patient and family at bedside. All questions answered. Please call us with any further questions. cc: MD Davide Pritchett MD
[2019-04-18] MEDS: LOVENOX SUBQ SCH (20:41)
[2019-04-19] MEDS: ZOSYN 3.375 GM in NS 50 ML IV SCH ×4 (01:46→18:02)
[2019-04-19] MEDS: NS 1,000 ML IV SCH ×2 (03:40→05:37)
[2019-04-19] MEDS: DILAUDID IV PRN ×2 (04:57→14:06)
[2019-04-19] MEDS: HUMULIN R SUBQ SCH ×4 (06:26→21:58)
[2019-04-19] MEDS: MIRALAX PO SCH (09:17)
[2019-04-19] MEDS ORDERED: NS 1,000 ML IV SCH ×2 (09:56→15:12)
--- NOTE | 2019-04-19 12:02 | Diag Imaging Result Doc PS360 ---
EXAM: CT ABD/PELVIS W/IV CONT ONLY INDICATION: Acute Pancreatitis TECHNIQUE: This exam was performed using automated exposure control, adjustment of mA or kV according to patient size, and/or use of iterative reconstruction technique. COMPARISON: 04/15/2019 FINDINGS: There has been development of at least a moderate to large sized pleural effusion on the right that is partially imaged. There is a small left effusion. There is significant right basilar atelectasis and milder left basilar atelectasis. There has been a prior cholecystectomy. There is no significant biliary dilatation. The liver and spleen are essentially unremarkable. There is extensive inflammatory stranding around the pancreas consistent with acute pancreatitis. It appears perhaps slightly worse than the previous study. However, this probably due to better visualization from the added IV contrast. There is no evidence of pancreatic necrosis. There are no loculated fluid collections. There is no evidence of portal or splenic vein thrombosis. The kidneys are essentially unremarkable. There is a Vargas catheter in the urinary bladder and the bladder is nondistended. The reproductive tract is grossly unremarkable as imaged. There is a small amount of free fluid layering in the pelvis. There is uncomplicated diverticulosis coli. There is no obstructive bowel pattern. There is a stable hiatal hernia. There is body wall anasarca. IMPRESSION: 1.Acute pancreatitis with inflammatory changes that may be slightly worse than the previous study but this is probably due to the addition of IV contrast would better visualization. No evidence of pancreatic necrosis. 2.Development of a moderate to large size right pleural effusion and a small left effusion. 3.Development of body wall anasarca. Electronically signed by Saturnino Trejo 04/19/2019 12:00 PM
[2019-04-19] MEDS ORDERED: LASIX IV ONE (12:14)
[2019-04-19] MEDS: SODIUM CHLORIDE 0.9% INJ SCH (14:29)
[2019-04-19] MEDS: NEXIUM IV SCH (14:29)
--- NOTE | 2019-04-19 16:06 | GASTROENTEROLOGY PROGRESS NOTE ---
DATE: 04/19/2019 ADMITTING PHYSICIAN: Dr. Gongora. SUBJECTIVE: Patient resting in bed. She complained of abdominal pain and nausea which got worse last night. She is on Dilaudid 1 to 2 mg every 3 hours. According to her, the pain has gotten slightly worse. We will obtain a CT scan today to rule out pancreatic necrosis. Her lipase and amylase had normalized yesterday. Her white count was trending down yesterday. We are repeating labs tomorrow. The patient has been on clear liquids. She was able to take some Sprite, but it made her nauseous. She has not had a bowel movement yet. She denies any fevers, rigors, or chills. OBJECTIVE: Vital Signs: Temperature 97.7 degrees, pulse rate 61, respiratory rate 17, blood pressure 130/58, saturating 94% on 2 L nasal cannula. Body weight: 219 pounds. BMI of 36.4 kg. General Appearance: Obese, lying in bed, in no acute distress. HEENT: Positive pallor. No icterus. Pupils equal, reactive to light. Neck: Supple. Abdomen is obese, discomfort and tenderness in the epigastrium. No rebound or guarding. Extremities: No cyanosis, clubbing. Neurologic: Alert, awake, oriented times 3. DIAGNOSTIC STUDIES: No labs were drawn today. Her blood glucose was 106. Her CA19-9 was 1935 which is high. Her lipase was 28 yesterday, amylase 59. Her IgG 4 level is still pending. Blood culture times 2 negative after 48 hours. IMPRESSION AND PLAN: 1. Severe acute pancreatitis of unclear etiology. We will follow up on the IgG 4 level. Her CA19-9 level is high. The patient does complain of some increasing abdominal pain and nausea last night after eating. We will obtain a CT scan with intravenous contrast to evaluate for pancreatic necrosis. There was a question of pancreatic necrosis on the initial CT scan, but it was not clear at that time, so we will order interval CT scan today. I have discussed that with the patient. We will also reduce her fluids to 100 mL/h. We will continue on clear liquid diet for now, and I will start her on Ensure Clear which she can take as tolerated. She will continue on IV pain control and IV antiemetics. 2. Shortness of breath. This could be from atelectasis versus lung congestion. She was on Lasix at home. This can be initiated per the primary team. I will also start her on incentive spirometer. The patient was also encouraged to ambulate in her room and may be able to move to chair and walk to the bathroom as tolerated and with assistance. 3. Constipation. We will start her on MiraLAX once daily. 4. Gastrointestinal prophylaxis with Nexium. 5. Leukocytosis. We will check the CBC tomorrow. 6. Obesity. Patient will need to lose weight. 7. Diverticulosis of the colon. Aware. 8. History of colon polyps. Aware. 9. History of breast cancer in 1990s status post surgery and reconstruction. Currently in remission. 10. Left bundle branch block. Aware. 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 Cardenas. We will follow along. The above plan of care was discussed with the patient and family at bedside, and all of their questions were answered. Please call us with any further questions. cc: MD Davide Pritchett MD
[2019-04-19] MEDS: LOVENOX SUBQ SCH (20:15)
--- NOTE | 2019-04-19 20:54 | PROGRESS NOTE ---
DATE: 04/19/2019 SUBJECT: Events noted over the weekend. Vargas was placed. PICC line on the left side noted. She got volume overload and causing some shortness of breath and wheezing. Still has some belly pain. LFTs were coming down. REVIEW OF SYSTEMS: Shortness of breath, still intermittent abdominal pain, constipation. PHYSICAL EXAMINATION: Temperature is 98.8 degrees, pulse is 88, blood pressure is 154/83, 93%.HEENT: Within normal limits. Neck: Supple. No lymphadenopathy. Chest: Bilateral air entry. Heart: Sounds are regular. Belly: Is soft, nontender. Good bowel sounds and no peripheral edema. The patient has Vargas placed. PICC line on the left side. LABS: White cell count 23, hematocrit 34, platelets 203,000. Sodium 146, potassium 3.7, chloride 111. LFTs, bilirubin is 1.6. LFTs were slightly coming down, amylase, lipase was normal. CA19-9 is 2000. IgG 4 levels are still pending. Blood cultures were negative. ASSESSMENT AND PLAN: 1. Acute pancreatitis. Workup so far is negative. No gallstone disease. Normal triglycerides. 2. Volume overload. Decrease IV fluids 50 mL/hour. Lasix was given, repeat in the morning. 3. Acute pancreatitis resolving. Waiting for the cause. Elevated CA-19-9. Will discuss with Dr. Moscoso. He wants to repeat another CA-19-9 or endoscopic ultrasound, MRCP was negative. 4. Peripherally inserted central catheter line on the left side. 5. Continue IV Nexium. 6. Continue on Lovenox for DVT prophylaxis. 7. Right arm lymphedema stable. 8. Constipation. MiraLAX was given. 9. Elevated white cell count. Continue on IV Zosyn to prevent ascending cholangitis. I discussed the plan of care with the family twice today and also discussed briefly with Dr. Moscoso and repeat the labs in the morning and Dr. Victor is going to do a CT of the abdomen and pelvis. I will repeat the chest x-ray in the morning. LEVEL OF DOCUMENTATION: 25 minutes. cc: Davide Gongora MD
[2019-04-20] MEDS: DILAUDID IV PRN ×4 (00:06→22:25)
[2019-04-20] MEDS: ZOSYN 3.375 GM in NS 50 ML IV SCH ×2 (00:07→06:00)
[2019-04-20] MEDS ORDERED: LASIX IV ONE (05:00)
[2019-04-20] MEDS: HUMULIN R SUBQ SCH ×4 (06:00→20:51)
[2019-04-20 06:03] LABS: BASO# 0.04 X1000 (0.0-0.2); BASO% 0.2 % (0.0-0.8); EOS# 0.03 X1000 (0.0-0.7); EOS% 0.2 % (0.0-10.0); HEMATOCRIT 34.3 % (37.0-47.0); HEMOGLOBIN 11.5 g/dL (12.0-16.0); IMM GRAN# 0.52 X1000 (0.0-0.04); IMM GRAN% 3.1 % (0.0-0.5); LYMPH# 0.63 X1000 (1.2-3.4); LYMPH% 3.8 % (20.5-51.1); MCH 30.9 PG (27-31); MCHC 33.5 g/dL (33-37); MCV 92.2 FL (81-99); MONO# 1.74 X1000 (0.11-0.59); MONO% 10.5 % (1.7-9.3); MPV 10.6 FL (7.4-10.4); NEUT# 13.61 X1000 (1.4-6.5); NEUT% 82.2 % (42.2-75.2); PLT 215 X1000 (130-400); RBC 3.72 XMIL (4.2-5.4); RDW 12.5 % (11.5-14.5); WBC 16.57 X1000 (4.8-10.8)
[2019-04-20 06:53] LABS: AGAP 12; ALBUMIN 3.1 g/dL (3.5-5.0); ALKALINE PHOSPHATASE 115 U/L (32-104); AMYLASE 30 U/L (20-200); BUN 8 mg/dL (8-22); CALCIUM 8.3 mg/dL (8.8-10.2); CHLORIDE 106 mmol/L (98-107); COSMO 286; CREATININE 0.5 mg/dL (0.5-0.9); ESTIMATED GFR > 60; GLUCOSE 116 mg/dL (70-104); GOT 24 U/L (10-30); GPT 76 U/L (10-36); SODIUM 144 mmol/L (136-145); TCO2 26 mmol/L (25-35); TOTAL BILIRUBIN 1.61 mg/dL (0.20-1.00); TOTAL PROTEIN 6.1 g/dL (6.3-8.3)
[2019-04-20 06:56] LABS: POTASSIUM 2.3 mmol/L (3.5-5.1)
--- NOTE | 2019-04-20 08:30 | Diag Imaging Result Doc PS360 ---
EXAM: CHEST-2 VIEWS 04/20/2019 HISTORY: wheezing TECHNIQUE: PA and lateral chest COMMENT: There are bilateral pleural effusions, more so on the right than the left. This has increased dramatically since 05/15/2018. There is cardiomegaly. There is a left-sided PICC line with its tip in the superior vena cava. There is apparent bibasilar atelectasis versus pneumonia. IMPRESSION: Bibasilar pneumonia and pleural effusions. Electronically signed by Thierry Rosado 04/20/2019 8:27 AM
[2019-04-20] MEDS: MIRALAX PO SCH (08:59)
[2019-04-20] MEDS: POTASSIUM CHLORIDE 60 MEQ in NS 500 ML IV SCH ×2 (08:59→14:47)
--- NOTE | 2019-04-20 11:29 | PROVIDER PROGRESS NOTE ---
Progress Note S: No acute overnight events. Afebrile. Patient reports some nausea with dry heaving, but has been able to tolerate clear liquid diet. Abdominal pain 2/10 currently; worse with laying down. No SOB, CP, rectal bleeding. Reports constipation since admission. O: Last Vital Signs Temp 98.1 F 04/20/19 11:17 Pulse 91 H 04/20/19 11:17 Resp 18 04/20/19 11:17 BP 135/78 04/20/19 11:17 Pulse Ox 90 L 04/20/19 11:17 Height 5 ft 5 in Weight 219 lb GEN: awake, alert, NAD HEENT: anicteric, MMM, EOMI NECK: supple, no jvd PULM: mild increased WOB, no wheezing or crackles, decreased BS at bases CV: RRR, no murmurs ABD: soft NT/ND, hypoactive BS, no rebound or guarding; no ascites EXT: no cce NEURO: nonfocal LABS: 04/20/19 04/20/19 05:45 05:45 WBC 16.57 H Hgb 11.5 L Plt Count 215 Sodium 144 Potassium 2.3 L* D Chloride 106 Carbon Dioxide 26 Anion Gap 12 BUN 8 D Creatinine 0.5 Glucose 116 H Total Bilirubin 1.61 H AST 24 ALT 76 H Alkaline Phosphatase 115 H Total Protein 6.1 L Albumin 3.1 L EXAM: CHEST-2 VIEWS 04/20/2019 HISTORY: wheezing TECHNIQUE: PA and lateral chest COMMENT: There are bilateral pleural effusions, more so on the right than the left. This has increased dramatically since 05/15/2018. There is cardiomegaly. There is a left- sided PICC line with its tip in the superior vena cava. There is apparent bibasilar atelectasis versus pneumonia. IMPRESSION: Bibasilar pneumonia and pleural effusions. CT A/P with IV IMPRESSION: 1.Acute pancreatitis with inflammatory changes that may be slightly worse than the previous study but this is probably due to the addition of IV contrast would better visualization. No evidence of pancreatic necrosis. 2.Development of a moderate to large size right pleural effusion and a small left effusion. 3.Development of body wall anasarca. MRI MRCP (ABD W/O CONTRAST) - 04/16/2019 INDICATION: r/o choledocholithiasis TECHNIQUE: COMPARISON: CT and ultrasound from earlier today FINDINGS: The MRCP is normal. Common bile duct measures 4.6 mm in caliber. The main pancreatic duct is completely normal and measures 1 mm. No stones or filling defect. There is significant diffuse peripancreatic edema compatible with pancreatitis. No drainable fluid collections. Normal spleen size. There is a hiatal hernia. IMPRESSION: 1. Acute pancreatitis. 2. Normal MRCP. ASSESSMENT/PLAN: Ms. Leonela Joe is a 74-year-old woman with obesity, prior history of cholecystectomy, who presents with acute pancreatitis as well as mixed hepatocellular and cholestatic liver injury. CT, ultrasound, MRCP are negative for biliary obstruction or masses. Her triglycerides are within normal limits. IgG4 pending. CA19-9 elevated to 1935 concerning for underlying malignancy. Repeat CT with contrast yesterday was negative for complicated pancreatitis or masses. She had interval development of anasarca and pleural effusions secondary to suspected volume overload. # Acute pancreatitis: unclear etiology; patient will need EUS in 4-6 weeks upon discharge; outpatient referral to [facility] recommended; will start low fat diet; recommend weaning IV pain meds; cultures negative to date and no walled-off necrosis imaging; stopped zosyn # Pleural effusions vs PNA: suspect volume overload; less likely pneumonia; she has anasarca; stop IVFs, encourage PO fluids, and allow for auto-diuresis # Hypokalemia: replete prn # Abnormal LFTs: improving # Leukocytosis: likely acute phase reactant; improving # Constipation: continue bowel regimen Will follow with you. Please call with questions
[2019-04-20] MEDS: NEXIUM IV SCH (14:47)
[2019-04-20] MEDS: SODIUM CHLORIDE 0.9% INJ SCH (14:47)
[2019-04-20] MEDS: LOVENOX SUBQ SCH (20:52)
--- NOTE | 2019-04-20 21:22 | PROGRESS NOTE ---
DATE: 04/20/2019 SUBJECTIVE: The patient is a little better. She went for a chest x-ray which showed some effusions, and Lasix was given. This morning, potassium is low. Abdominal pain is slowly improving. OBJECTIVE: Temperature is 97. Vitals are stable.HEENT: Within normal limits. Chest: Poor air entry. Heart sounds are regular. PICC line on the left side. Extremities: Lymphedema on the right side. Abdomen: Belly is soft, nontender. INVESTIGATIONS: White cell count 16, hematocrit 34, platelets 215. Sodium 144, potassium 2.3, BUN 8, creatinine 0.5 glucose 116. LFTs were coming down. ASSESSMENT AND PLAN: 1. Acute pancreatitis. Elevated CA-19-9. IgG 4 levels are normal. All other workup was negative, and she is not taking in alcohol. The only medicine she is taking at home, hydrochlorothiazide, possibly might be the contributing factor, but elevation of CA-19-9 is concerning. We will arrange outpatient endoscopy for ultrasound. 2. Hypokalemia. Replace the potassium. 3. Incentive spirometry. 4. Dr. Garcia discontinued IV antibiotics, and has advanced her diet to a soft diet. Discontinue Vargas in the morning. Slowly out of the bed with physical therapy and repeat labs in the morning. LEVEL OF DOCUMENTATION: 25 minutes. cc: Davide Gongora MD
[2019-04-20] MEDS: ZOFRAN IV PRN (22:25)
[2019-04-21] MEDS: DILAUDID IV PRN (04:21)
[2019-04-21] MEDS: ZOFRAN IV PRN ×2 (04:21→21:23)
[2019-04-21 06:45] LABS: BASO# 0.03 X1000 (0.0-0.2); BASO% 0.2 % (0.0-0.8); EOS% 0.7 % (0.0-10.0); HEMATOCRIT 34.6 % (37.0-47.0); HEMOGLOBIN 11.5 g/dL (12.0-16.0); IMM GRAN# 0.66 X1000 (0.0-0.04); IMM GRAN% 4.6 % (0.0-0.5); LYMPH# 0.94 X1000 (1.2-3.4); LYMPH% 6.6 % (20.5-51.1); MCH 30.5 PG (27-31); MCHC 33.2 g/dL (33-37); MCV 91.8 FL (81-99); MONO# 1.68 X1000 (0.11-0.59); MONO% 11.7 % (1.7-9.3); MPV 10.3 FL (7.4-10.4); NEUT# 10.89 X1000 (1.4-6.5); NEUT% 76.2 % (42.2-75.2); PLT 203 X1000 (130-400); RBC 3.77 XMIL (4.2-5.4); RDW 12.6 % (11.5-14.5)
[2019-04-21 07:05] LABS: BANDS 2 % (0-1); LYMPHS 8 % (21-51); MONO 10 % (1-9); SEGS 78 % (42-75)
[2019-04-21 07:17] LABS: AGAP 7; ALB/GLOB RATIO 1.1; ALBUMIN 2.9 g/dL (3.5-5.0); ALKALINE PHOSPHATASE 85 U/L (32-104); BUN 10 mg/dL (8-22); CALCIUM 9.3 mg/dL (8.8-10.2); CHLORIDE 103 mmol/L (98-107); COSMO 283; CREATININE 0.6 mg/dL (0.5-0.9); ESTIMATED GFR > 60; GLUCOSE 105 mg/dL (70-104); GOT 24 U/L (10-30); GPT 60 U/L (10-36); POTASSIUM 3.2 mmol/L (3.5-5.1); SODIUM 142 mmol/L (136-145); TCO2 32 mmol/L (25-35); TOTAL BILIRUBIN 1.12 mg/dL (0.20-1.00); TOTAL PROTEIN 5.6 g/dL (6.3-8.3)
[2019-04-21] MEDS: HUMULIN R SUBQ SCH ×3 (08:13→17:06)
[2019-04-21] MEDS: POTASSIUM CHLORIDE 60 MEQ in NS 500 ML IV SCH ×2 (09:17→17:06)
[2019-04-21] MEDS: MIRALAX PO SCH (09:17)
[2019-04-21] MEDS: OXY IR PO PRN ×2 (13:29→21:23)
[2019-04-21] MEDS: LOVENOX SUBQ SCH (20:49)
--- NOTE | 2019-04-21 21:22 | PROGRESS NOTE ---
DATE: 04/21/2019 SUBJECTIVE: Patient is a little better. No abdominal pain. REVIEW OF SYSTEMS: None reported. OBJECTIVE: Vital Signs: Temperature is 98 degrees. Tachycardic. Vitals are stable. HEENT: Within normal limits. Lungs: Poor air entry. Heart: Distant heart sounds. Abdomen: Belly is soft, nontender. Neurologic: No neurological deficits. INVESTIGATIONS: CBC: White cell count 14, hematocrit 34, platelets 203,000. Sodium 142, potassium 3.2, chloride 103, BUN 10, creatinine 0.6. LFTs were coming down. ASSESSMENT AND PLAN: A 74-year-old white female admitted to the hospital with acute pancreatitis. Etiology is to be determined. Elevated CA19-9 associated with volume overload and with diuresis causing the hypokalemia, and poor intravenous access with a peripherally inserted central catheter line on the left side. Plan of care is incentive spirometry, out of the bed, discontinue Vargas, and replace the potassium. Continue deep venous thrombosis and gastrointestinal prophylaxis, and repeat the blood tests in the morning. LEVEL OF DOCUMENTATION: 25 minutes. cc: Davide Gongora MD
--- NOTE | 2019-04-22 01:24 | PROVIDER PROGRESS NOTE ---
Progress Note LATE ENTRY DATE 04/21/2019 S: No acute overnight events. Afebrile. No N/V/F. Patient is tolerating solid diet, but eating minimally. She has 2/10 abdominal pain currently. Constipation improved. Good UOP. Received IV lasix for volume overload. O: GEN: awake, alert, NAD HEENT: anicteric, MMM, EOMI NECK: supple, no jvd PULM: no wheezing or crackles, decreased BS at bases CV: RRR, no murmurs ABD: soft NT/ND, hypoactive BS, no rebound or guarding; no ascites EXT: no cce NEURO: nonfocal LABS: 04/21/19 04/21/19 06:25 06:25 WBC 14.30 H Hgb 11.5 L Plt Count 203 Sodium 142 Potassium 3.2 L D Chloride 103 Carbon Dioxide 32 BUN 10 Creatinine 0.6 Glucose 105 H Total Bilirubin 1.12 H AST 24 ALT 60 H Alkaline Phosphatase 85 Total Protein 5.6 L Albumin 2.9 L ASSESSMENT/PLAN: Ms. Leonela Joe is a 74-year-old woman with obesity, prior history of cholecystectomy, who presents with acute pancreatitis as well as mixed hepatocellular and cholestatic liver injury. CT, ultrasound, MRCP are negative for biliary obstruction or masses. Her triglycerides are within normal limits. IgG4 WNL. CA19-9 elevated to 1935 concerning for underlying malignancy. Repeat CT with contrast yesterday was negative for complicated pancreatitis or masses. She had interval development of anasarca and pleural effusions secondary to suspected volume overload diuresed with IV lasix. Her abdominal pain is improving, tolerating diet, and patient is having bowel movements. # Acute pancreatitis: unclear etiology; patient will need EUS in 4-6 weeks upon discharge; Dr. Gongora will refer to [facility] as outpatient. - transitioned IV pain meds to oral oxycodone, continue low fat diet as tolerated # Pleural effusions vs PNA: suspect volume overload; less likely pneumonia; receiving lasix as per primary # Hypokalemia: replete prn # Abnormal LFTs: improving # Leukocytosis: likely acute phase reactant; improving off antibiotics # Constipation: improved; continue bowel regimen Will follow with you. Please call with questions
[2019-04-22] MEDS: HUMULIN R SUBQ SCH ×5 (01:32→21:19)
[2019-04-22] MEDS: OXY IR PO PRN ×3 (02:30→21:00)
[2019-04-22] MEDS: ZOFRAN IV PRN (02:35)
[2019-04-22 06:58] LABS: BASO# 0.03 X1000 (0.0-0.2); BASO% 0.2 % (0.0-0.8); EOS# 0.25 X1000 (0.0-0.7); EOS% 1.9 % (0.0-10.0); HEMATOCRIT 34.9 % (37.0-47.0); HEMOGLOBIN 11.8 g/dL (12.0-16.0); IMM GRAN# 0.54 X1000 (0.0-0.04); LYMPH% 8.9 % (20.5-51.1); MCHC 33.8 g/dL (33-37); MCV 91.6 FL (81-99); MONO% 10.4 % (1.7-9.3); MPV 10.6 FL (7.4-10.4); NEUT# 10.03 X1000 (1.4-6.5); NEUT% 74.6 % (42.2-75.2); PLT 204 X1000 (130-400); RBC 3.81 XMIL (4.2-5.4); RDW 12.5 % (11.5-14.5); WBC 13.45 X1000 (4.8-10.8)
[2019-04-22 07:28] LABS: AGAP 7; ALBUMIN 2.9 g/dL (3.5-5.0); ALKALINE PHOSPHATASE 87 U/L (32-104); BUN 6 mg/dL (8-22); CALCIUM 9.1 mg/dL (8.8-10.2); CHLORIDE 102 mmol/L (98-107); COSMO 276; CREATININE 0.5 mg/dL (0.5-0.9); ESTIMATED GFR > 60; GLUCOSE 108 mg/dL (70-104); GOT 23 U/L (10-30); GPT 52 U/L (10-36); POTASSIUM 3.5 mmol/L (3.5-5.1); SODIUM 139 mmol/L (136-145); TCO2 30 mmol/L (25-35); TOTAL BILIRUBIN 1.09 mg/dL (0.20-1.00); TOTAL PROTEIN 5.7 g/dL (6.3-8.3)
--- NOTE | 2019-04-22 08:40 | Diag Imaging Result Doc PS360 ---
CHEST-2 VIEWS - 04/22/2019 INDICATION: SOB COMPARISON: 04/20/2019 FINDINGS: Stable left PICC line. Stable moderate right and small left pleural effusions. No definite infiltrates. Stable cardiomegaly. IMPRESSION: No change from prior. Electronically signed by Jhonny Faye 04/22/2019 8:37 AM
[2019-04-22] MEDS: MIRALAX PO SCH (08:59)
[2019-04-22] MEDS: SODIUM CHLORIDE 0.9% INJ SCH (11:25)
[2019-04-22] MEDS: PEPCID PO SCH ×2 (11:26→20:57)
--- NOTE | 2019-04-22 12:11 | GASTROENTEROLOGY PROGRESS NOTE ---
DATE: 04/22/2019 SUBJECTIVE: Resting in chair. Her sister is at bedside. The patient is feeling better. She is taking MiraLAX. She had a bowel movement yesterday. She is eating better. She denies any fevers, rigors, chills. Abdominal pain is improving. She grades the pain as 2/10. OBJECTIVE: Vital signs: Temperature 98 degrees, pulse rate 87, respiratory rate 18, blood pressure 142/92, saturating 93% on 3 L nasal cannula. Weight: Body weight of 219 pounds, BMI of 36.4 kg/m2. General: Patient is obese, sitting in chair, in no acute distress. HEENT: Pale conjunctivae. No icterus. Neck: Supple. Abdomen: Obese. Discomfort in the epigastrium. No rebound or guarding. Extremities: No cyanosis, clubbing. Neurologic: Alert, awake, oriented x3. DIAGNOSTIC STUDIES: Hemoglobin 11.8, hematocrit 34.9, white count 13.45, platelet count 204,000. Sodium 139, potassium 3.5, chloride 102, bicarbonate 30, anion gap 7, BUN 6, creatinine 0.5, glucose 100, calcium is 9.1, total bilirubin 1.09, AST 23, ALT 52, alkaline phosphatase 87, total protein 5.7, albumin 2.9. Blood culture x2: Negative after 5 days. Chest x-ray: Stable left-sided PICC line. Stable moderate right and left pleural effusions noted. No definite infiltrate. Stable cardiomegaly noted. IMPRESSION AND PLAN: 1. Acute pancreatitis of unclear etiology. Patient will be scheduled for EUS at [facility] for evaluation for the etiology of pancreatitis and elevated CA19-9. Continue with low-fat diet. 2. Pleural effusions versus pneumonia. She is receiving Lasix per primary care team. 3. Electrolyte imbalance. Being repleted by primary care team. 4. Abnormal liver enzymes, improving. 5. Leukocytosis, improving. She is off antibiotics. 6. Constipation. Continue MiraLAX and bowel regimen. 7. Obesity. Patient counseled to lose weight. 8. Acute pancreatitis. Workup was negative with negative MRCP and negative CT scan for pancreatic necrosis. Her triglycerides were normal. IgG 4 level is normal. CA19-9 was high at 1935. 9. Mild anemia. Continue to watch for now. 10. Deep vein thrombosis prophylaxis with Lovenox. 11. Gastrointestinal prophylaxis with Pepcid b.i.d. Patient will follow up in the clinic within 6 weeks of discharge. The above plans were discussed with the patient and family and all questions were answered. cc: MD Davide Pritchett MD MTDYuval
[2019-04-22] MEDS: LOVENOX SUBQ SCH (20:56)
[2019-04-23 07:28] LABS: BASO# 0.02 X1000 (0.0-0.2); BASO% 0.2 % (0.0-0.8); EOS# 0.19 X1000 (0.0-0.7); EOS% 1.6 % (0.0-10.0); HEMATOCRIT 34.7 % (37.0-47.0); HEMOGLOBIN 11.6 g/dL (12.0-16.0); IMM GRAN# 0.38 X1000 (0.0-0.04); IMM GRAN% 3.2 % (0.0-0.5); LYMPH% 7.5 % (20.5-51.1); MCH 30.9 PG (27-31); MCHC 33.4 g/dL (33-37); MCV 92.5 FL (81-99); MPV 10.9 FL (7.4-10.4); NEUT# 9.28 X1000 (1.4-6.5); NEUT% 77.5 % (42.2-75.2); PLT 181 X1000 (130-400); RBC 3.75 XMIL (4.2-5.4); RDW 12.8 % (11.5-14.5); WBC 11.97 X1000 (4.8-10.8)
[2019-04-23 07:53] LABS: AGAP 10; ALB/GLOB RATIO 1.1; ALKALINE PHOSPHATASE 82 U/L (32-104); BUN 7 mg/dL (8-22); CALCIUM 9.4 mg/dL (8.8-10.2); CHLORIDE 98 mmol/L (98-107); COSMO 277; CREATININE 0.5 mg/dL (0.5-0.9); ESTIMATED GFR > 60; GLUCOSE 125 mg/dL (70-104); GOT 20 U/L (10-30); GPT 44 U/L (10-36); POTASSIUM 3.3 mmol/L (3.5-5.1); SODIUM 139 mmol/L (136-145); TCO2 31 mmol/L (25-35); TOTAL BILIRUBIN 1.04 mg/dL (0.20-1.00); TOTAL PROTEIN 5.7 g/dL (6.3-8.3)
[2019-04-23] MEDS ORDERED: POTASSIUM CHLORIDE 40 MEQ/SWI 40 MEQ/100 ML IVPB IV ONE (08:21)
[2019-04-23] MEDS: PEPCID PO SCH ×2 (09:35→20:53)
[2019-04-23] MEDS: MIRALAX PO SCH (09:35)
[2019-04-23] MEDS: OXY IR PO PRN (14:34)
[2019-04-23] MEDS: HUMULIN R SUBQ SCH ×3 (14:38→20:55)
[2019-04-23] MEDS ORDERED: AMBIEN PO PRN (17:58)
--- NOTE | 2019-04-23 20:33 | PROGRESS NOTE ---
DATE: 04/23/2019 SUBJECTIVE: The patient has a little bit shortness of breath on exertion, off oxygen, able to walk with some assistance. REVIEW OF SYSTEMS: Otherwise, some vague abdominal pain, insomnia. OBJECTIVE: Vital Signs: Temperature is 98.5 degrees, pulse 85, blood pressure 148/82, and 97% on room air. HEENT: Within normal limits. Neck: Supple. No lymphadenopathy. Chest: Bilateral air entry. Heart: Sounds are regular. Abdomen: Belly is soft, nontender. No obvious deficits. INVESTIGATIONS: CBC: White cell count 11, hematocrit 34, platelets 181. Sodium 139, potassium 3.3, chloride 98, BUN 7, creatinine 0.5, glucose 125. LFTs were normal. ASSESSMENT AND PLAN: 1. Acute pancreatitis, resolving. Waiting to be referred to [facility] or [facility] for endoscopic ultrasound. 2. Elevated CA19-9. 3. Pleural effusion. Check the chest x-ray in the morning. 4. Ambien added for insomnia. 5. Deep venous thrombosis and gastrointestinal prophylaxis. 6. Peripherally inserted central catheter line on the left side. 7. Repeat the x-ray in the morning. 8. Will discharge over the weekend. LEVEL OF DOCUMENTATION: 25 minutes. cc: Davide Gongora MD
[2019-04-23] MEDS: LOVENOX SUBQ SCH (20:53)
--- NOTE | 2019-04-23 23:37 | PROVIDER PROGRESS NOTE ---
Progress Note S: No acute overnight events. Tolerating low fat diet. No N/V/F. SOB improving. +BMs O: Last Vital Signs Temp 98.0 F 04/23/19 23:22 Pulse 79 04/23/19 23:22 Resp 18 04/23/19 23:22 BP 137/76 04/23/19 23:22 Pulse Ox 96 04/23/19 23:22 Height 5 ft 5 in Weight 219 lb GEN: awake, alert, NAD HEENT: anicteric, MMM, EOMI NECK: supple, no jvd PULM: no wheezing or crackles, decreased BS at bases CV: RRR, no murmurs ABD: soft NT/ND, hypoactive BS, no rebound or guarding; no ascites EXT: no cce NEURO: nonfocal LABS: 04/23/19 04/23/19 06:52 06:52 WBC 11.97 H Hgb 11.6 L Plt Count 181 Sodium 139 Potassium 3.3 L Chloride 98 Carbon Dioxide 31 BUN 7 L Creatinine 0.5 Glucose 125 H Total Bilirubin 1.04 H AST 20 ALT 44 H Alkaline Phosphatase 82 Total Protein 5.7 L Albumin 3.0 L ASSESSMENT/PLAN: Ms. Leonela Joe is a 74-year-old woman with obesity, prior history of cholecystectomy, who presents with acute pancreatitis as well as mixed hepatocellular and cholestatic liver injury. CT, ultrasound, MRCP are negative for biliary obstruction or masses. Her triglycerides are within normal limits. IgG4 WNL. CA19-9 elevated to 1935 concerning for underlying malignancy. Repeat CT with contrast was negative for complicated pancreatitis or masses. She had interval development of anasarca and pleural effusions secondary to suspected volume overload. Her abdominal pain is improving, tolerating diet, and patient is having bowel movements. # Acute pancreatitis: resolving; unclear etiology; patient will need EUS in 4-6 weeks upon discharge; will refer to [facility] as outpatient # Pleural effusions: from volume overload: mgmt per primary # Hypokalemia: replete prn # Abnormal LFTs: improving # Leukocytosis: likely acute phase reactant; improving off antibiotics # Constipation: improved; continue bowel regimen Will sign off. Follow-up with Dr. Garcia in 1 week. Please call with questions.
[2019-04-24 07:35] VITALS: BP 144/85
[2019-04-24] MEDS: HUMULIN R SUBQ SCH (08:14)
--- NOTE | 2019-04-24 08:45 | Diag Imaging Result Doc PS360 ---
CHEST-2 VIEWS - 04/24/2019 INDICATION: hypoxia COMPARISON: 04/22/2019 FINDINGS: Stable left PICC line. Stable small right and trace left pleural effusions. No infiltrates or significant edema. Heart size remains normal. IMPRESSION: No change from prior. Electronically signed by Jhonny Faye 04/24/2019 8:43 AM
[2019-04-24] MEDS: MIRALAX PO SCH (09:46)
[2019-04-24] MEDS: PEPCID PO SCH (09:46)
[2019-04-24] MEDS: OXY IR PO PRN (12:57)
--- NOTE | 2019-04-25 16:14 | DISCHARGE SUMMARY ---
ADMISSION DATE: 04/15/2019 DISCHARGE DATE: 04/24/2019 DISCHARGING DIAGNOSIS: Abdominal pain due to acute pancreatitis, etiology to be determined. SECONDARY DIAGNOSES: 1. Elevated CA19-9 at 1952. 2. Hypokalemia. 3. Congestive heart failure due to volume overload. 4. History of left bundle branch block. Left heart catheterization was negative by Dr. Cardenas last year. 5. History of right-sided breast cancer, in remission since 1989. 6. Chronic lymphedema in the right arm. 7. Metabolic syndrome. 8. Hiatal hernia. 9. Hypertension. 10. History of kidney stones. PROCEDURES: PICC line on the left side. CONSULTS: Dr. Victor, Dr. Garcia. RADIOLOGY PROCEDURES: 1. CT scan of the abdomen and pelvis: Acute pancreatitis. No definite abscess. Necrosis noted. Bilateral kidney stones. Diverticulosis of sigmoid colon. 2. MRCP of the abdomen: Acute pancreatitis. Normal MRCP. Significant diffuse peripancreatic edema. No masses noted. Common bile duct is 4.6 mm in caliber. 3. Ultrasound of the abdomen: Status post cholecystectomy. Common bile duct is normal. 4. Chest x-ray: Pleural effusion. Right is worse than the left side. BRIEF HISTORY: She is a 74-year-old white female with the above problems, prior history of gallbladder surgery. Came to the hospital with upper abdominal pain for the last 3 days, going to the back, associated with nausea. The patient had significant elevated liver function tests as well as amylase and lipase. She has been diagnosed acute pancreatitis with elevated liver function tests. HOSPITAL COURSE: The patient was treated conservatively with n.p.o. and IV fluids, pain control, and IV antibiotics with Zosyn. DVT and GI prophylaxis with Lovenox and PPI, respectively. Slowly Heaven's criteria was followed, and she has slowly declining amylase and lipase as well as the liver function tests. As a part of the workup, the patient was ruled out for hyperlipidemia. No gallstone disease. IgG 4 levels were normal. No prior history of alcohol. The patient has extensive workup which includes MRCP. Repeat CT scan of the abdomen and pelvis did not find any tumor or dilatation of common bile duct. There was no pancreatic necrosis noted. Nevertheless, CA19-9 was significantly elevated close to 1999. Her clinical course was complicated by congestive heart failure with volume overload for fluids, the patient was weaned off the fluids and gave IV Lasix. Symptoms are much improved. She continues to have small effusions on both sides for which low dose of Lasix 20 mg daily along with potassium and incentive spirometer were given. She also had a poor IV access for which PICC line was placed on the left side. That was discontinued prior to the discharge. The patient is ambulating very well. Oxygenation is very well. Since the significant elevation of CA19-9, Dr. Victor or I will schedule as an outpatient in [place] at [facility] for endoscopic ultrasound to rule out any tumors. The patient was discharged home in a stable condition. DIAGNOSTIC STUDIES: White cell count 11, hematocrit 34, platelets 181,000. SMA 7: Sodium 139, potassium 3.3, chloride 98, BUN 7, creatinine 0.5, glucose 125, total bilirubin 1.0. LFTs were normal. Blood cultures were negative. IgG 4 levels were normal. CA19-9 is significantly elevated. DISCHARGE INSTRUCTIONS: 1. Amlodipine 5 mg daily, biotin capsule 1 capsule daily, Zebeta 5 mg daily, Protonix 40 daily, discontinue hydrochlorothiazide, aspirin 81 mg daily, vitamin D3 of 1000 units daily, Lasix 20 mg daily, Ultracet 1 tablet q.6 h. p.r.n. pain, Ambien 10 at bedtime. MiraLAX 17 g daily, potassium 10 mEq daily. 2. Follow up in my office next week as well as Dr. Victor and they are going to make the arrangements for endoscopic ultrasound at [facility] at the patient's family request next week. cc: MD Shawn Rebollar MD Michael Kelso, MD MTDD
== END 2019-04-24 13:24 | disposition home or self-care (01) | DRG 438 ==
LOC: ED 13:51 → 3N 16:19
PROVIDERS: ADMIT Internal Medicine; ATTEND Internal Medicine
CPT/HCPCS: 36569; 71020; 71046; 74176; 74177; 74181; 76700; 80048; 80053; 80061; 81001; 82150; 82784; 82787; 82948; 83690; 85025; 85610; 86301; 87040; 94760; 94761; 94799; 96361; 96374; 96375; 99285; A9270; J1170; J1650; J1940; J2270; J2405; J2543; J3475; J3480; J7030; J7040; J7050; Q9967; XXXXX